=== PATIENT | male | born 1960 | race Caucasian/White ===

== ENCOUNTER 2024-07-03 10:19 | Emergency (ER) | payer OTHER ==
[2024-07-03 10:39] VITALS: BP 141/86; PULSE 86; RESP 22; TEMP 98.3; BMI 43.4
[2024-07-03] MEDS: LIDOCAINE 4% PATCH TP ONE (11:15)
[2024-07-03] MEDS ORDERED: KETOROLAC TROMETHAMINE 15 MG/ML VIAL ONE (11:24)
[2024-07-03] MEDS ORDERED: LIDOCAINE 4% PATCH TP ONE ×2 (11:24→14:24)
[2024-07-03] MEDS: KETOROLAC TROMETHAMINE 15 MG/ML VIAL IM ONE (11:37)
[2024-07-03] MEDS ORDERED: ACETAMINOPHEN 325 MG TABLET (FP) ONE (14:24)
[2024-07-03] MEDS: ACETAMINOPHEN 325 MG TABLET (FP) PO ONE (14:41)
[2024-07-03] MEDS ORDERED: LIDOCAINE PATCH REMOVAL MC SCH (22:00)
[2024-07-04] MEDS ORDERED: LIDOCAINE 4% PATCH TP SCH (10:00)
[2024-07-04] MEDS ORDERED: LIDOCAINE PATCH REMOVAL MC SCH (22:00)
== END 2024-07-03 15:12 | disposition home or self-care (01) ==
LOC: JER 10:19
PROC: 3E0133Z Introduction of Anti-inflammatory into Subcutaneous Tissue, Percutaneous Approach (ICD-10-PCS; principal; 2024-07-03)
DX: M54.50 Low back pain, unspecified (principal); R07.9 Chest pain, unspecified
CPT/HCPCS: 71045-TC-FY; 72131-TC; 76604; 76705-TC; 93005; 93010; 93308; 96372; 99284-25